=== PATIENT | male | born 1990 | race Two or more races ===

== ENCOUNTER 2022-01-06 19:17 | Emergency (ER) | payer SELFPAY ==
[2022-01-06] MEDS ORDERED: Ketorolac 15 MG/ML SDV IVPUSH ONE (19:58)
[2022-01-06] MEDS ORDERED: Doxycycline Monohydrate 50 MG Tab PO ONE (21:29)
[2022-01-06] MEDS ORDERED: CEFTRIAXONE 500 MG IM ONE ×2 (21:29)
[2022-01-06] MEDS ORDERED: LIDOCAINE 1% IM ONE ×2 (21:29)
[2022-01-06] MEDS ORDERED: Doxycycline 100 MG Cap PO ONE (21:37)
== END 2022-01-06 21:50 | disposition home or self-care (01) ==
LOC: JD.ED 19:17
DX: N39.0 Urinary tract infection, site not specified (principal)
CPT/HCPCS: 36415; 74176; 80053; 81001; 85025; 96372; 96374; 99284; A9270; J0696; J1885